=== PATIENT | female | born 1965 | race Caucasian/White ===

== ENCOUNTER → 2024-03-27 | Outpatient (CLI) | payer MEDICAID, SELFPAY ==
--- NOTE | 2024-03-27 11:15 | XR_ITS ---
Examination: Abdomen sonogram, complete Date and time of exam: March 27, 2024 1133 hours INDICATIONS: Nausea beginning 2014. Technique: Multiple real-time grayscale transabdominal sonographic images of the abdomen have been obtained. Findings: Normal gallbladder Normal common bile duct 0.1 cm Pancreatic head 2.4 cm Aorta not enlarged Liver 18.1 cm fatty infiltration 18 mm right lobe hyperechoic lesion which may represent a hemangioma Normal hepatopedal portal venous flow Patent IVC Right kidney 11.8 x 4.0 x 5.5 cm cortex 1.0 cm Left kidney 11.8 x 5.3 x 5.9 cm cortex 1.5 cm Mild left hydronephrosis Spleen 9.6 cm IMPRESSION: Normal gallbladder Small probable hemangioma right lobe the liver, recommend 3 month follow-up hepatic sonography Mild left hydronephrosis, consider CT scan abdomen pelvis without contrast follow-up to assess etiology of the hydronephrosis
== END | disposition home or self-care (01) ==
PROVIDERS: PCP Nurse Practitioner Family; Referring Provider Specialist; Visit Provider Specialist
DX: N13.30 Unspecified hydronephrosis (principal)
CPT/HCPCS: 76700

== ENCOUNTER 2024-04-24 10:00 | Outpatient (RCR) | payer MEDICAID, SELFPAY ==
--- NOTE | 2024-04-05 13:24 | PTNOTE_ITS ---
PT OP Initial Eval Patient Information Outpatient Physical Therapy Treatment Date: 04/05/24 Visit Reasons: low back pain Medical Diagnosis: M79.1; M54.50 Treatment Dx #1: Mid Back Pain Start of Care: 04/05/24 Date of Onset: Dec 2023 Smoking Status Smoking Status: Current every day smoker (yes) Cessation Counseling Provided: EL was advised that quitting smoking is the single most important factor to protect the health of themselves and their family. Discussed the benefits of quitting smoking with patient. Encouraged patient to quit smoking and provided Cessation assistance materials and resources. Tobacco Use: Cigarette Years smoked: 20 Are you interested in quitting?: No Would you like additional Smoking Cessation Counseling?: No Initial Assessment Subjective: Pt is a 59 y/o female reports of mid back pain (11/02) since she got ill Dec 2023. Pt mentioned her xray and CT scan negative. Pt's mid back pain worsening with coughing. Pt has limitation with standing, sitting, chores, self care, and performing recreational activities. Objective: T/S AROM: all motions are WFL except end range pain with extension BUE AROM: all motions are WFL BUE MMTs: grossly 4-/5 Scapula MMTs: grossly 3+/5 Palpation: TTP and hypomobile T3-T5 facets Assessment: Pt demonstrate mid back pain consistent with facet syndrome leading to difficulty with ADLs. Pt will benefit from physical therapy to increase ROM, strength, and work on mobility. Short Term and Long-Term Goals 1) Increase T/S AROM WNL in 6 wks to be able to perform chores 2) Decrease mid back pain to 2/10 in 6 wks to be able to sit and stand more than 30 mins 3) Increase scapula MMTs grossly 4-/5 in 6 wks to be able to perform recreational activities 4) Indep with HEP Treatment Plan 1) Manual Therapy 2) Therapeutic Exercises 3) Therapeutic Activities 4) Modalities (ice, heat) Frequency and Duration: 2 x wk for 6 wks Certification Dates: 04/05/24 to 07/04/24 Procedure Charges OP PT Eval Mod Complex 30 minutes: Yes
--- NOTE | 2024-04-11 14:05 | PT.ODAYNRPT ---
PT Outpatient Daily Note OP Daily Note Outpatient Physical Therapy Treatment Date: 04/11/24 Visit Reasons: low back pain Subjective: Pt mention her mid back is hurting more lately since the eval. Objective: Please see flow chart for list of ther ex performed Assessment: tolerate exercises with minimal pain; heat helped patient tolerate sitting exercises Plan: Continue with PT Length of Time (minutes) of Treatment: 30 Minutes Procedure Charges Therapeutic Exercise 30 minutes: Yes
--- NOTE | 2024-04-13 14:05 | PT.ODAYNRPT ---
PT Outpatient Daily Note OP Daily Note Outpatient Physical Therapy Treatment Date: 04/13/24 Visit Reasons: low back pain Subjective: Pt reports back is doing a little better. Objective: Please see flow sheet for ther ex list. Assessment: Added thoracic extension pt tolerated well. Plan: Continue with POC. Length of Time (minutes) of Treatment: 30 Minutes Procedure Charges Therapeutic Exercise 30 minutes: Yes
--- NOTE | 2024-04-20 09:52 | PT.ODAYNRPT ---
PT Outpatient Daily Note OP Daily Note Outpatient Physical Therapy Treatment Date: 04/20/24 Visit Reasons: low back pain Subjective: Pt's back feels the same no change in pain. Objective: Please see flow chart for list of ther ex performed Assessment: tolerate exercises with minimal pain Plan: Continue with PT Length of Time (minutes) of Treatment: 30 Minutes Procedure Charges Therapeutic Exercise 30 minutes: Yes
--- NOTE | 2024-04-24 10:17 | PT.ODAYNRPT ---
PT Outpatient Daily Note OP Daily Note Outpatient Physical Therapy Treatment Date: 04/24/24 Visit Reasons: low back pain Subjective: Pt's back is about the same. Pt is unsure if physical therapy is helping or not. Pt mention possible d/c from PT next appt. Objective: Please see flow chart for list of ther ex performed Assessment: minimal changes in pain. Pt cues to pace with exercises and stretches in therapy session Plan: Continue with PT Length of Time (minutes) of Treatment: 30 Minutes Procedure Charges Therapeutic Exercise 30 minutes: Yes
== END 2024-04-25 23:59 | disposition home or self-care (01) ==
LOC: CPTX 10:00
PROVIDERS: PCP Nurse Practitioner Family; Referring Provider Nurse Practitioner Family; Visit Provider Nurse Practitioner Family
DX: M54.6 Pain in thoracic spine (principal); Z71.6 Tobacco abuse counseling; F17.210 Nicotine dependence, cigarettes, uncomplicated
CPT/HCPCS: 97110; 97162

== ENCOUNTER 2024-04-28 13:29 | Outpatient (RCR) | payer MEDICAID, SELFPAY ==
--- NOTE | 2024-04-28 13:49 | PT.ODS1RPT ---
PT OP Progress/Discharge Note Date of Service: 04/28/24 Progress Note/DC Note Progress Note/Discharge Note: DC Note Patient Information Visit Reasons: Low back pain Medical Diagnosis: m79.1; M54.50 Treatment Dx #1: Mid Back Pain Service Continue Service or Discharge: Discharge Discharge Date: 04/28/24 Status Subjective: Pt's back feels about the same. Due to pain and symptoms Pt continues to have limitation with ADLs, chores, and recreational activities. Pt will like to stop physical therapy and follow up with MD. Pt wants further imaging in the spine. Objective: T/S AROM: all motions are WNL with pain into extension BUE AROM: all motions are WNL BUE MMTs: grossly 4-/5 Scapula MMTs: grossly 3+/5 Assessment: Pt demonstrate functional t/s mobility and thoracic core strength, however, no change in pain leading to difficulty with ADLs. Pt will no longer benefit from physical therapy due to plateau towards goals. Pt was instructed on HEP last session and educated to continue exercises to maintain overall mobility. Pt performed all exercises safely, thank you for your referrals. Plan: D/C home with HEP and follow up with MD ORTIZ Further Imaging per MD's discretion Procedure Charges Therapeutic Exercise 30 minutes: Yes
== END 2024-05-26 23:59 | disposition home or self-care (01) ==
LOC: CPTX 13:29
PROVIDERS: PCP Nurse Practitioner Family; Referring Provider Nurse Practitioner Family; Visit Provider Nurse Practitioner Family
DX: M54.6 Pain in thoracic spine (principal); M54.50 Low back pain, unspecified
CPT/HCPCS: 97110

== ENCOUNTER → 2024-05-04 | Outpatient (CLI) | payer MEDICAID, SELFPAY ==
--- NOTE | 2024-05-04 13:00 | XR_ITS ---
Examination: CT chest, without intravenous contrast. Sagittal and coronal 2-D reconstructions. Exam date and time: May 04, 2024 1321 hours Comparison May 25, 2023 INDICATIONS: Smoking history 40 years, diagnosis chronic obstructive pulmonary disease with acute cough beginning one week ago CTDI:vol (mGy) 12.2 DLP: (mGycm) 418 Technique: Multiple 3.0 mm axial sections of the chest to been obtained. Bone and lung density settings are obtained. Sagittal and coronal 2-D reconstructions have been obtained. Low dose protocols were performed. One or more of the following dose reduction techniques were used; automated exposure control, adjustment of the mA and/or KV according to patient size, use of iterative reconstruction technique. Findings: No thoracic aortic aneurysmal dilatation Pulmonary artery segments are not enlarged. No paratracheal tracheobronchial or bronchopulmonary adenopathy 3 mm pulmonary nodule posterior left lung image 150 4 mm pulmonary nodule lingular segment image 185 No pneumonia or pulmonary edema or pleural disease No visualized liver or splenic lesion No pancreatic mass No adrenal mass Kidneys partially visualized no hydronephrosis Severe osteopenia with T6-T7 moderate subacute sclerotic compression fractures which appear pathologic IMPRESSION: Small noncalcified pulmonary nodules as above, with this study as baseline, recommend continued 6 month follow-up CT chest without contrast Suspicious for pathologic vertebral body compressions, T6, T7, recommend MRI thoracic spine follow-up pre and postcontrast
== END | disposition home or self-care (01) ==
LOC: CCTX 13:02
PROVIDERS: PCP Nurse Practitioner Family; Referring Provider Internal Medicine; Visit Provider Internal Medicine
DX: R91.8 Other nonspecific abnormal finding of lung field (principal)
CPT/HCPCS: 71250

== ENCOUNTER → 2024-06-01 | Outpatient (CLI) | payer MEDICAID, SELFPAY ==
--- NOTE | 2024-06-01 13:15 | XR_ITS ---
Examination: MRI thoracic spine without contrast. Date and time of exam: June 01, 2024 1449 hours INDICATIONS: Mid back pain 5 months after coughing episode with injury to the back Technique: Multiple sagittal and axial images of the thoracic spine have been obtained. T1 weighted localizer, sagittal T2 weighted images, TR 30-50, TE 148, T1 weighted sagittal images, TR 650, TE 14, T2-weighted transverse images, TR 6770, TE 142 Findings: Compression fractures T5, T6, severe which appear chronic to subacute Adequate alignment of these vertebral bodies No focal thoracic disc protrusion No localized enlargement thoracic cord no impingement upon the thoracic cord Impression: Compression fracture T5, T6, severe which appear chronic to subacute Recommend this patient return for MRI thoracic spine post intravenous contrast follow-up
== END | disposition home or self-care (01) ==
PROVIDERS: PCP Nurse Practitioner Family; Referring Provider Nurse Practitioner Family; Visit Provider Nurse Practitioner Family
DX: S22.059A Unspecified fracture of T5-T6 vertebra, initial encounter for closed fracture (principal); X58.XXXA Exposure to other specified factors, initial encounter
CPT/HCPCS: 72146

== ENCOUNTER → 2024-07-05 | Outpatient (CLI) | payer MEDICAID, SELFPAY ==
--- NOTE | 2024-07-05 14:30 | XR_ITS ---
Examination: Screening digital mammography, bilateral Computer aided detection 3-D breast Tomosynthesis, bilateral Date and time of exam: , 2:15 PM Comparisons: 06/18/2023 Indications: Screening Technique: Nonmagnified MLO, CC views of the breasts to been obtained, reconstructed from 3-D Tomosynthesis images. R2 computer aided detection program utilized for evaluation of suspicious masses and/or abnormal calcifications. 3-D Tomosynthesis images obtained. Technologist: Findings: There are scattered areas of fibroglandular density. Subpectoral saline implants appear intact. No evidence of abnormal masses or suspicious calcifications. Impression: BI-RADS category 2: Benign findings Recommend 1 year follow-up mammogram
== END | disposition home or self-care (01) ==
PROVIDERS: PCP Nurse Practitioner Family; Referring Provider Nurse Practitioner Family; Visit Provider Nurse Practitioner Family
DX: Z12.31 Encounter for screening mammogram for malignant neoplasm of breast (principal); R92.323 Mammographic fibroglandular density, bilateral breasts
CPT/HCPCS: 77063; 77067

== ENCOUNTER → 2024-07-12 | Outpatient (CLI) | payer MEDICAID, SELFPAY ==
--- NOTE | 2024-07-12 14:00 | XR_ITS ---
Examination: Bone densitometry Date and time of exam:July 12, 2024 1421 hours INDICATIONS: Hysterectomy age 37 post menopausal compression fractures T5, T6, smoking history Technique: Lumbar spine and hip total bone mineralization values of an calculated. Peak reference and age match control results have been displayed. Findings: Lumbar spine total bone mineralization is0.966 gm/cm2. This is 0.7 standard deviations below peak reference. This is 0.7 standard deviations above age-matched controls. Hip total bone mineralization is 0.935 gm/cm2 This is 0.1 standard deviations below peak reference. This is 0.9 standard deviations above age-matched controls Impression: There is normal mineralization based on lumbar spine measurements. There is osteopenia based on hip measurements Lumbar mineralization is decreased 5.0% compared with April 14, 2010 Hip mineralization is decreased 8.5% compared with April 14, 2010
== END | disposition home or self-care (01) ==
LOC: CDIM 10:32
PROVIDERS: Referring Provider Physician Assistant; Visit Provider Physician Assistant
DX: M85.89 Other specified disorders of bone density and structure, multiple sites (principal); Z87.81 Personal history of (healed) traumatic fracture
CPT/HCPCS: 77080

== ENCOUNTER → 2024-09-14 | Outpatient (CLI) | payer MEDICAID, SELFPAY ==
--- NOTE | 2024-09-14 12:08 | XR_ITS ---
Examination: Sinus series 4 views TECHNIQUE: Cheryl Tijerina lateral submentovertex sinus series 4 views Date and time: September 14, 2024 1326 hours INDICATIONS: Sinus pressure and pain beginning 3 years ago. FINDINGS: Opacity in the frontal ethmoid air cells Maxillary antra are clear Sphenoid air cells are clear No fluid levels IMPRESSION: Chronic frontal ethmoid sinusitis
== END | disposition home or self-care (01) ==
LOC: CDIM 12:01
PROVIDERS: Referring Provider Physician Assistant Medical; Visit Provider Physician Assistant Medical
DX: J32.8 Other chronic sinusitis (principal)
CPT/HCPCS: 70220

== ENCOUNTER 2025-01-27 10:26 | Emergency (ER) | payer MEDICAID, SELFPAY ==
[2025-01-27 10:26] VITALS: BMI 29.4
[2025-01-27 10:34] VITALS: BP 122/83; PULSE 94; RESP 18; TEMP 36.5; O2SAT 98; BMI 26.6
[2025-01-27 12:02] LABS: Collection Type, Urine Voided
[2025-01-27 12:12] LABS: Bilirubin,Urine Negative (Negative); Blood,Urine Negative (Negative); Clarity,Urine Clear (Clear/Hazy); Color,Urine Yellow (Lt Yel-Yel); Culture Indicated,Urine Not Indicated; Glucose, Urine Negative (Negative); Ketones,Urine Negative (Negative); Leukocyte Esterase,Urine Positive (Negative); Nitrite,Urine Negative (Negative); PH,Urine 6.5 (5.0-7.0); Protein,Urine Negative (Neg - Trace); RBC,Urine < 1 /hpf (0-3); Specific Gravity,Urine 1.025 (1.001-1.035); Squamous Epithelial Cell,Urine 2 /hpf (0-5); Urobilinogen,Urine 2.0 mg/dL (0.0-1.0); WBC,Urine 3 /hpf (0-5)
--- NOTE | 2025-01-27 13:09 | PD.EDSKIN ---
ED Skin Abcess FB-RME/HPI General Chief complaint: Abdominal Pain Stated complaint: R LOWER ABD PAIN RADIATIN R LOWER BACK X5 DAYS Time Seen by Provider: 01/27/25 10:27 Arrival date/time: 01/27/25 10:26 This is a 60-year-old female that comes into the emergency room with complaints of rash to the right lower abdomen and pain to the right lower abdomen and that radiates to her back. Patient has a vesicular rash that started last night. Patient denies any sick contacts. Related Data Home Medications ?Medication ?Instructions ?Recorded ?Confirmed amlodipine 5 mg tablet 5 mg PO QDAY 07/22/18 01/17/23 levothyroxine 75 mcg tablet 75 mcg PO QDAY 07/22/18 01/17/23 albuterol sulfate 90 mcg/actuation 1 puff inhalation Q6H PRN 07/25/18 01/17/23 aerosol inhaler (Ventolin HFA) Shortness Of Breath Or Wheezing albuterol sulfate 90 mcg/actuation 2 puff inhalation [id number] PRN 01/17/23 01/17/23 aerosol inhaler Shortness Of Breath bempedoic acid 180 mg tablet 180 mg PO HS 01/17/23 01/17/23 (Nexletol) ezetimibe 10 mg tablet 10 mg PO HS 01/17/23 01/17/23 gabapentin 300 mg capsule 300 mg PO HS 01/17/23 01/17/23 gemfibrozil 600 mg tablet 600 mg PO BIDWM 01/17/23 01/17/23 hydrocodone 10 mg-acetaminophen 1 tab PO Q8HR PRN Pain 01/17/23 01/17/23 325 mg tablet nicotine 21 mg/24 hr daily 21 mg topical DAILY 01/17/23 01/17/23 transdermal patch tiotropium bromide 2.5 2 puff inhalation DAILY 01/17/23 01/17/23 mcg/actuation mist for inhalation (Spiriva Respimat) Previous Rx's ?Medication ?Instructions ?Recorded gabapentin 100 mg capsule 100 mg PO TID #30 caps 01/27/25 Allergies Allergy/AdvReac Type Severity Reaction Status Date / Time amoxicillin (From Augmentin) Allergy Severe FACIAL Verified 01/27/25 10:31 SWELLING clavulanic acid (From Allergy Severe FACIAL Verified 01/27/25 10:31 Augmentin) SWELLING levofloxacin (From Levaquin) Allergy Severe Hives Verified 01/27/25 10:31 Review of Systems Review of Systems Systems Reviewed: All systems reviewed, normal except as documented Past Medical History Past Medical History NEUROLOGIC: Negative Seizures CARDIAC: Positive Hypertension; Negative Congestive Heart Failure RESPIRATORY: Negative Chronic Obstructive Pulmonary Disease (COPD) GASTROINTESTINAL: Positive Irritable Bowel and Gastroesophageal Reflux Disease GENITOURINARY: Negative Renal Disease MUSCULOSKELETAL: Positive Fibromyalgia ENDOCRINE: Positive Hypothyroidism; Negative Diabetes Mellitus Type 1 or Diabetes Mellitus Type 2 OTHER HISTORY: Negative Blood Transfusions or Anesthesia Reactions Family History FAMILY HISTORY: Positive Family Cardiac Disorders (father- pacemaker) Surgical History SURGICAL: Positive Hysterectomy, Tubal Ligation and Section Social History SMOKING STATUS: Current every day smoker Travel History EBOLA RISK: No ED Exam Narrative Physical exam: VITAL SIGNS: Reviewed. GENERAL APPEARANCE: Alert and interactive, follows commands, no acute distress HEAD AND FACE: Non-traumatic. ENT: PERRL, conjuctiva pink and clear, eyelid no trauma, Mucous membrane moist. NECK: Supple, nontender, no nuchal rigidity. CHEST: No tenderness, no crepitus, no paradoxical movement, no retractions. LUNGS: breathing even and unlabored HEART: Regular rate, cap refill less than 2 seconds ABDOMEN: Soft, nondistended, no guarding, nontender, no rebound, no masses, NEUROLOGICAL: Gross motor function intact sensory function intact, Appropriate for age. MUSCULOSKELETAL: low back nontender, full range of motion. no midline tenderness, no step offs EXTREMITIES: No redness no swelling no skin breakdown on bilateral foot and leg. Distal neurovascular status intact bilateral foot SKIN: vesticular rash to the right lower abdomen that extends to right lower back Course Quality Measures none Orders Category Date Time Status Urinalysis, C/S if Indicated Stat Lab 01/27/25 11:45 Completed Acyclovir [Zovirax] Med 01/27/25 13:09 Discontinued 800 mg PO X1 ONE Vital Signs Vital signs: Vital Signs Temperature 97.7 F 01/27/25 10:34 Pulse Rate 94 01/27/25 10:34 Respiratory Rate 18 01/27/25 10:34 Blood Pressure 122/83 01/27/25 10:34 Pulse Oximetry (%) 98 01/27/25 10:34 Oxygen Delivery Method Room Air 01/27/25 10:34 Skin / Abscess / Foreign Body MDM Narrative MDM Narrative:: Patient found to have shingles. Will treat. Urine looks unremarkable. Patient told to follow-up with primary provider in 1 to 2 days. [place] to the emergency room symptoms change or worsen. Patient data External records reviewed:: [facility] previous records Clinical information provided by:: patient Social determinants that could affect healthcare access:: none Patient has the following chronic illnesses:: none How is presenting disease/condition affected by chronic disease/condition?: uneffected by Evaluation data The following diagnostics were reviewed and interpreted by me:: lab results Lab and/or radiology exams considered but not ordered:: none Interpretation Summary: see note Medications / Prescriptions Medications or Prescriptions considered but not ordered:: none Medication administrations:: Medication Administration History Discontinued Medications Acyclovir (Acyclovir 800 Mg Tablet) 800 mg PO X1 ONE Stop: 01/27/25 13:10 Last Admin: 01/27/25 13:24 Dose: 800 mg Documented By: OA see mar Consultations Consultation(s) initiated? (list below): No Diagnosis Skin/Abscess Differential Diagnosis: abscess of skin or subcutaneous tissue, herpes zoster, allergic reaction to drug, cellulitis and other (shingles ) Most likely diagnosis given after review of the tests above:: shingles Admission Indicated Admission indicated?: not indicated Admission Request Was there a request for admission?: No Disposition Plan Disposition Plan: Discharge Discharge Attestation Discharge Attestation: The patient and all family members were given an opportunity to ask questions and understood the discharge instructions. Discharge instructions specifically effects, indications for sooner follow up or return to the emergency department, and the expected course of current diagnosis. Patient condition: Stable Discharge Plan Plan Patient Disposition: HOME (Self Care) Patient condition on transfer: Stable Prescriptions/Referrals Prescriptions/Med Rec: New gabapentin 100 mg capsule 100 mg PO TID Qty: 30 0RF No Action amlodipine 5 mg Tablet 5 mg PO QDAY levothyroxine 75 mcg Tablet 75 mcg PO QDAY albuterol sulfate [Ventolin HFA] 90 mcg/actuation Hfa Aerosol Inhaler 1 puff INHALATION Q6H PRN (Reason: Shortness Of Breath Or Wheezing) hydrocodone-acetaminophen 10-325 mg tablet 1 tab PO Q8HR PRN (Reason: Pain) Patient Comments: TAKE ONE TABLET BY MOUTH THREE TIMES DAILY NEEDED FOR PAIN gemfibrozil 600 mg tablet 600 mg PO BIDWM Patient Comments: TAKE ONE TABLET BY MOUTH TWICE DAILY 30 MINUTES BEFORE morning AND evening meals FOR CHOLESTEROL ezetimibe 10 mg tablet 10 mg PO HS Patient Comments: TAKE ONE TABLET BY MOUTH EVERY DAY FOR CHOLESTEROL gabapentin 300 mg capsule 300 mg PO HS Patient Comments: TAKE ONE CAPSULE BY MOUTH EVERY EVENING FOR NERVE PAIN nicotine 21 mg/24 hr patch 24 hour 21 mg TOPICAL DAILY Patient Comments: APPLY ONE PATCH TRANSDERMALLY EVERY DAY TO STOP SMOKING FOR SIX WEEKS albuterol sulfate 90 mcg/actuation HFA aerosol inhaler 2 puff INHALATION [id number] PRN (Reason: Shortness Of Breath) Patient Comments: INHALE TWO PUFFS BY MOUTH EVERY 4 TO 6 HOURS NEEDED Spiriva Respimat 2.5 mcg/actuation mist 2 puff INHALATION DAILY Patient Comments: INHALE TWO PUFFS BY MOUTH EVERY DAY Nexletol 180 mg tablet 180 mg PO HS Patient Comments: TAKE ONE TABLET BY MOUTH EVERY DAY Referrals: No Primary/Family,Physician [Primary Care Provider] - In 1 week Problem List Clinical Impression: Shingles Patient/Caregiver Discharge Instructions Discharge Activity: activity as tolerated Education Materials: ED Shingles (Herpes Zoster) Additional Instructions: Follow up with primary provider in 1-2 days. Come back to ED if symptoms change or worsen Print Language: Setswana Stand Alone Forms: Nicole Award Info., Patient Portal Info Letter PA/[employer] Supervising Physician MARIA TERESA/RORY Supervising Physician: annalisa
[2025-01-27] MEDS: ACYCLOVIR 800 MG TABLET PO (13:24)
== END 2025-01-27 13:32 | disposition home or self-care (01) ==
PROVIDERS: Nurse Practitioner Family; Emergency Provider Emergency Medicine
DX: B02.9 Zoster without complications (principal); I10 Essential (primary) hypertension; E03.9 Hypothyroidism, unspecified; M79.7 Fibromyalgia; F17.210 Nicotine dependence, cigarettes, uncomplicated
CPT/HCPCS: 81001; 99283; A9270

== ENCOUNTER → 2025-03-20 | Outpatient (CLI) | payer MEDICAID, SELFPAY ==
--- NOTE | 2025-03-20 10:15 | XR_ITS ---
EXAMINATION: CT abdomen wo con ORDERING PROVIDER: NADER Rowan HISTORY: RT. UPPER QUAD. PAIN R10.11 TECHNIQUE: Without intravenous or oral contrast, CT was used in the volumetric, helical imaging acquisition of the abdomen with 2-D and 3-D reformats generated on a separate workstation and submitted for interpretation. Institutional dose reducing protocols were utilized. Evaluation of hollow viscus and solid viscera is limited secondary to lack of intravenous and oral contrast. RADIATION DOSE: DLP 273 mGy-cm COMPARISON: 07/25/2018, CT abdomen pelvis. 03/27/2024, right upper quadrant ultrasound. FINDINGS: LIVER: Pepper's morphology, similar to prior. In segment 6, inferior aspect, there is a 1.4 cm indistinct hypodensity, which correlates with previously seen probable hemangioma dating back to at least 2019. BILIARY: Unremarkable. PANCREAS: Pancreatic duct at the upper limits of normal. There is a mildly irregular 1.0 x 0.6 x 0.8 cm hypodensity in the pancreatic head, series 2 image 71 and series 6 image 94. Again seen are a couple of scattered punctate calcifications associated with the pancreas which may be vascular or sequela of old chronic pancreatitis. SPLEEN: Unremarkable. ADRENAL GLANDS: Unremarkable. KIDNEYS: No hydronephrosis. No perinephric fat stranding. Similar small left extrarenal pelvis. Some areas of mild cortical scarring left kidney, similar to prior URETERS: Unremarkable proximally, distal not visualized. HOLLOW VISCUS: Limited evaluation without oral contrast. Scattered colonic diverticula without surrounding inflammatory changes. Incomplete visualization of the large bowel and distal small bowel VASCULATURE: Moderate vasculopathic changes. PELVIS: Normal. LYMPH NODES: Scattered prominent lymph nodes not pathologically enlarged by imaging criteria. LUNG BASES: Emphysematous changes. Bibasilar scarring. BONES: Moderate degenerative disc L2-L3. Scattered Schmorl's nodes. ABDOMINAL WALL: Bilateral breast implants incompletely evaluated. Fat filled umbilical hernia with subcentimeter neck IMPRESSION: Pancreatic duct at the upper limits of normal with suggestion of a 1.0 cm hypodense area in the pancreatic head. Recommend correlation with labs and further investigation with MR pancreas and MRCP.
== END | disposition home or self-care (01) ==
LOC: CCTX 10:07
DX: R10.11 Right upper quadrant pain (principal)
CPT/HCPCS: 74150

== ENCOUNTER → 2025-04-13 | Outpatient (CLI) | payer MEDICAID, SELFPAY ==
--- NOTE | 2025-04-13 16:45 | XR_ITS ---
Examination: MRI abdomen with intravenous contrast Date and time of exam: April 13, 2025, 1524 hours INDICATIONS: Abdominal pain and bloating beginning 3 months ago Technique: Multiple MRI axial and sagittal sections abdomen post intravenous administration 19 cc gadolinium Sagittal T2-weighted images, TR 3500, TE 118 T1 weighted transverse sections, TR 688 T8.5, T2-weighted sagittal sections T1 weighted sagittal sections TR 621, TE 30 T2 axial sections, TR 4, 190, TE 84. Findings: Moderate hepatomegaly,, 10 mm nodule in the right lobe of the liver with enhancement which may represent a hemangioma There is no intrahepatic biliary tract dilatation Possible mild sludge in the gallbladder No common hepatic or common bile duct stone Pancreatic duct is dilated up to 6 mm, however no pancreatic mass is noted Spleen is not enlarged No adrenal mass No hydronephrosis Aorta normal size No ascites IMPRESSION: Moderate hepatomegaly, 10 mm probable hemangioma lateral right lobe of the liver, recommend hepatic sonography for confirmation Dilated pancreatic duct as above, which can be seen with prior episodes of pancreatitis Recommend 3-month follow-up hepatic pancreatic ultrasound
--- NOTE | 2025-04-13 17:15 | XR_ITS ---
MRI abdomen, without contrast. MRCP Date and time of exam: April 13, 2025, 1736 hours INDICATIONS: Abdominal pain and bloating beginning 3 months ago, dilated pancreatic duct, 10 mm hypodense area in the pancreatic head on CT examination 03/20/2025 Technique: Multiple axial and coronal images of the abdomen have been obtained with the Siemens 1.5T MRI scanner. Images obtained included T1 weighted transverse images, T2-weighted transverse images, T2-weighted transverse images fat-suppressed, T2 weighted haste fat suppressed transverse images, T1 weighted images, in and out of phase images, T2-weighted coronal images, breath hold, T2 weighted haze coronal images as well as T2 weighted coronal thick slab images, MRCP. Findings: Hepatomegaly 20 cm no focal liver lesions no gallstones No common hepatic or common bile duct stones Pancreatic duct is dilated, measuring up to 6 mm No pancreatic masses depicted Normal spleen No hydronephrosis Aorta normal size No ascites IMPRESSION: Hepatomegaly, 20 cm No common hepatic or common bile duct stones Pancreatic duct is dilated up to 6 mm, which can be seen with prior episodes of pancreatitis No definite solid pancreatic mass Recommend follow-up ultrasound of the pancreas in 3 months
== END | disposition home or self-care (01) ==
LOC: SMRI 17:09
DX: R16.0 Hepatomegaly, not elsewhere classified (principal); K86.89 Other specified diseases of pancreas
CPT/HCPCS: 74181; 74182; A9577